=== PATIENT | female | born 1945 | race Caucasian/White ===

== ENCOUNTER → 2016-10-28 | Outpatient (CLI) | payer MEDICARE | END | disposition home or self-care (01) | LOC: CFH 14:00 | PROVIDERS: ATTEND Internal Medicine | DX: Z12.31 Encounter for screening mammogram for malignant neoplasm of breast (principal); M89.9 Disorder of bone, unspecified | CPT/HCPCS: 77080; G0202 ==

== ENCOUNTER → 2016-11-11 | Outpatient (CLI) | payer MEDICARE | END | disposition home or self-care (01) | LOC: CFH 12:30 | PROVIDERS: ATTEND Internal Medicine | DX: R92.0 Mammographic microcalcification found on diagnostic imaging of breast (principal) | CPT/HCPCS: G0206 ==

== ENCOUNTER 2016-12-05 11:57 | Day surgery (SDC) | payer MEDICARE ==
[2016-12-02 15:53] LABS: BLOOD UREA NITROGEN 19 mg/dL (7-18)
[2016-12-02 15:56] LABS: ASPARTATE AMINO TRANSFERASE 25 U/L (15-37)
[~2016-12-05] VITALS: Ht 162.6 cm; Wt 122.7 kg
[~2016-12-05 11:57] MED LIST: ALLO100T30 PO; AMLO1CAP10 PO; ASPI-496 PO; ATEN50TA41 PO; CHOL10003 PO; ESOM40CA PO; FLUT1DIS IH; GABA600T2 PO; LATA2.5D3 EACHEYE; LEVO50TA5 PO; METF10002 PO; MULT-717 PO; OMEG-133 PO; OXYC10TA32 PO; OXYC20TA42 PO; OXYC5CAP4 PO; PRAV80TA2 PO; ROPI2TAB4 PO; oxygen NAS
[2016-12-05] MEDS ORDERED: LIDOCAINE 1%, 2ML ONE (14:07)
[2016-12-05 14:18] VITALS: BP 181/84
[2016-12-05] MEDS ORDERED: LACTATED RINGERS 1,000 ML IV SCH (14:21)
[2016-12-05] MEDS ORDERED: FENTANYL PF 250 MCG/5ML ONE ×2 (14:31→15:16)
[2016-12-05] MEDS ORDERED: BUPIVACAINE/PF-EPI 0.5% 1:200K ONE (14:50)
[2016-12-05] MEDS ORDERED: SODIUM BICARBONATE 4.2%, 5ML ONE (15:23)
[2016-12-05] MEDS ORDERED: LIDOCAINE 1%, 20ML ONE (15:23)
[2016-12-05] MEDS ORDERED: hydrALAzine 20 MG/ML, 1ML IV PRN (15:30)
[2016-12-05] MEDS ORDERED: ACETAMINOPHEN 325 MG TABLET PO PRN (15:30)
[2016-12-05] MEDS ORDERED: ALBUTEROL SULFATE 2.5 MG/3 ML NPPB PRN (15:30)
[2016-12-05] MEDS ORDERED: HYDROmorphone 1 MG/ML, 1ML IV PRN (15:30)
[2016-12-05] MEDS ORDERED: OXYcodone 5 MG/5 ML ORAL.SOL UDC PO PRN (15:30)
[2016-12-05] MEDS ORDERED: METOPROLOL 1 MG/ML, 5ML IV PRN (15:30)
[2016-12-05] MEDS ORDERED: KETOROLAC 30 MG/1 ML IV PRN (15:30)
[2016-12-05] MEDS ORDERED: FENTANYL PF 100 MCG/2ML IV PRN (15:30)
[2016-12-05] MEDS ORDERED: PROMETHAZINE 25 MG/ML, 1ML IV PRN (15:30)
[2016-12-05] MEDS ORDERED: OXYcodone 5 MG/5 ML ORAL.SOL UDC ONE (15:59)
[2016-12-05] MEDS ORDERED: OxyconTIN ER 10 MG TAB.ER PO ONE (16:00)
[2016-12-05] MEDS ORDERED: CEFAZOLIN 1,000 MG ONE (16:38)
[2016-12-05] MEDS ORDERED: PROPOFOL 10 MG/ML, 20ML ONE (16:38)
[2016-12-05] MEDS ORDERED: PROPOFOL 10 MG/ML, 50ML ONE (16:38)
== END 2016-12-05 17:08 ==
LOC: CFH 11:57 → EDSTATUS 14:00 → CFH 17:08
PROVIDERS: ATTEND Surgery
DX: D24.1 Benign neoplasm of right breast (principal); I10 Essential (primary) hypertension; E11.9 Type 2 diabetes mellitus without complications; J45.909 Unspecified asthma, uncomplicated; E78.00 Pure hypercholesterolemia, unspecified; Z90.49 Acquired absence of other specified parts of digestive tract; Z90.710 Acquired absence of both cervix and uterus; Z98.890 Other specified postprocedural states; Z79.82 Long term (current) use of aspirin; Z72.89 Other problems related to lifestyle; K21.9 Gastro-esophageal reflux disease without esophagitis
CPT/HCPCS: 19125; 19281; 36415; 71020; 76098; 80053; 82962; 85025; 85610; 88307; 93005; J0690; J2704; J3010; J3490

== ENCOUNTER 2020-02-11 09:54 | Day surgery (SDC) | payer MEDICARE ==
[~2020-02-11] VITALS: Ht 162.6 cm; Wt 120.0 kg
[~2020-02-11 09:54] MED LIST changes: -AMLO1CAP10 PO; +AMLO1CAP11 PO; -GABA600T2 PO; +GABA600T7 PO; -OXYC10TA32 PO; +OXYC10TA47 PO; +OXYC5CAP2 PO; -OXYC5CAP4 PO; -ROPI2TAB4 PO; +ROPI2TAB8 PO
[2020-02-11] MEDS ORDERED: ASPIRIN 325 MG TABLET EC PO ONE (10:30)
[2020-02-11] MEDS ORDERED: SEMA0.25 SQ (10:39)
[2020-02-11] MEDS ORDERED: PRAV40TA2 PO (10:39)
[2020-02-11 10:40] VITALS: BP 182/99
[2020-02-11] MEDS ORDERED: SODIUM CHLORIDE 0.9% 1,000 ML IV SCH (11:00)
[2020-02-11] MEDS ORDERED: PLEASE ENTER HEIGHT AND WEIGHT MC SCH (11:00)
[2020-02-11 11:06] LABS: BASOPHILS # (AUTO) 0.05 x10^3/uL (0-0.1); BASOPHILS % (AUTO) 1 % (0-1); EOSINOPHILS # (AUTO) 0.17 x10^3/uL (0-0.4); EOSINOPHILS % (AUTO) 2 % (1-7); LYMPHOCYTES # (AUTO) 3.42 x10^3/uL (1-3.4); LYMPHOCYTES % (AUTO) 38 % (22-44); MD NO; MEAN CORPUSCULAR HEMOGLOBIN 27.7 pg (27.0-34.8); MEAN CORPUSCULAR HGB CONC 31.9 g/dL (32.4-35.8); MEAN PLATELET VOLUME 7.9 fL (7.4-10.4); MONOCYTES # (AUTO) 0.46 x10^3/uL (0.2-0.8); MONOCYTES % (AUTO) 5 % (2-9); NEUTROPHILS # (AUTO) 4.88 x10^3/uL (1.8-6.8); NEUTROPHILS % (AUTO) 54 % (42-75); PLATELET COUNT 253 x10^3/uL (130-400); RED BLOOD COUNT 4.25 x10^6/uL (3.82-5.3); RED CELL DISTRIBUTION WIDTH 15.1 % (9.6-15.2)
[2020-02-11 11:13] LABS: ANION GAP 8 mmol/L (5-15); CALCIUM 10.2 mg/dL (8.5-10.1); CHLORIDE 105 mmol/L (98-107); CREATININE 1.08 mg/dL (0.55-1.02)
[2020-02-11] MEDS ORDERED: ASPIRIN 325 MG TABLET EC ONE (11:14)
[2020-02-11 11:20] LABS: INTERNATIONAL NORMALIZED RATIO 0.95 (0.93-1.1); PROTHROMBIN TIME 9.8 Seconds (9.6-11.5)
[2020-02-11] MEDS ORDERED: HEPARIN 1,000 UNITS/ML, 10ML ONE (11:56)
[2020-02-11] MEDS ORDERED: BIVALIRUDIN 250 MG ONE (11:56)
[2020-02-11] MEDS ORDERED: MIDAZOLAM 1 MG/ML, 5ML ONE (11:56)
[2020-02-11] MEDS ORDERED: LIDOCAINE-MPF 1%, 5ML ONE (11:56)
[2020-02-11] MEDS ORDERED: FENTANYL PF 100 MCG/2ML ONE (11:56)
[2020-02-11] MEDS ORDERED: TICAGRELOR 90 MG TABLET ONE (11:56)
[2020-02-11] MEDS ORDERED: VERAPAMIL 2.5 MG/ML, 2ML ONE (11:56)
== END 2020-02-11 14:54 | disposition home or self-care (01) ==
LOC: CACL 09:54
PROVIDERS: ATTEND Internal Medicine Cardiovascular Disease
DX: R93.1 Abnormal findings on diagnostic imaging of heart and coronary circulation (principal); I10 Essential (primary) hypertension; E78.2 Mixed hyperlipidemia; E03.9 Hypothyroidism, unspecified; F32.9 Major depressive disorder, single episode, unspecified; E78.00 Pure hypercholesterolemia, unspecified; E11.40 Type 2 diabetes mellitus with diabetic neuropathy, unspecified; G47.33 Obstructive sleep apnea (adult) (pediatric); K21.9 Gastro-esophageal reflux disease without esophagitis; J45.909 Unspecified asthma, uncomplicated; E66.01 Morbid (severe) obesity due to excess calories; Z79.899 Other long term (current) drug therapy; Z79.82 Long term (current) use of aspirin; Z79.84 Long term (current) use of oral hypoglycemic drugs; Z68.42 Body mass index [BMI] 45.0-49.9, adult; Z91.048 Other nonmedicinal substance allergy status; Z98.890 Other specified postprocedural states; Z82.49 Family history of ischemic heart disease and other diseases of the circulatory system; Z83.3 Family history of diabetes mellitus
CPT/HCPCS: 36415; 71046; 80048; 85025; 85610; 93458; 99156; 99157; C1769; C1894; J1644; J2250; J3010; Q9967; J0583

== ENCOUNTER → 2020-03-20 | Outpatient (CLI) | payer MEDICARE ==
[~2020-03-20] MED LIST changes: +AMLO-150 PO; +BENA20TA54 PO; +LEVO25TA4 PO; +PRAV40TA2 PO; +SEMA0.25 SQ; +hydrochlorothiazide
[2020-03-20 14:25] LABS: ALANINE AMINOTRANSFERASE 21 U/L (12-78); ALBUMIN 3.8 g/dL (3.4-5.0); ANION GAP 11 mmol/L (5-15); CHLORIDE 102 mmol/L (98-107); CREATININE 1.38 mg/dL (0.55-1.02)
[2020-03-20 14:26] LABS: INTERNATIONAL NORMALIZED RATIO 0.99 (0.93-1.1); PROTHROMBIN TIME 10.5 Seconds (9.6-11.5)
[2020-03-20 14:28] LABS: ALKALINE PHOSPHATASE 100 U/L (45-117); BILIRUBIN,TOTAL 0.3 mg/dL (0.2-1.0); TOTAL PROTEIN 7.3 g/dL (6.4-8.2)
[2020-03-20 14:30] LABS: BASOPHILS % (AUTO) 1 % (0-1); EOSINOPHILS % (AUTO) 1 % (1-7); LYMPHOCYTES % (AUTO) 41 % (22-44); MEAN CORPUSCULAR HEMOGLOBIN 27.2 pg (27.0-34.8); MEAN CORPUSCULAR HGB CONC 31.4 g/dL (32.4-35.8); MEAN PLATELET VOLUME 8.3 fL (7.4-10.4); MONOCYTES % (AUTO) 5 % (2-9); NEUTROPHILS % (AUTO) 52 % (42-75); PLATELET COUNT 336 x10^3/uL (130-400); RED BLOOD COUNT 4.39 x10^6/uL (3.82-5.3); RED CELL DISTRIBUTION WIDTH 14.6 % (9.6-15.2)
[2020-03-20 14:49] LABS: MICROSCOPIC INDICATED
[2020-03-20 15:01] LABS: MD SCAN
== END | disposition home or self-care (01) ==
LOC: STAR 12:10
PROVIDERS: ATTEND Neurological Surgery
DX: Z01.818 Encounter for other preprocedural examination (principal); T84.84XA Pain due to internal orthopedic prosthetic devices, implants and grafts, initial encounter; R94.31 Abnormal electrocardiogram [ECG] [EKG]
CPT/HCPCS: 36415; 71046; 80053; 81001; 85025; 85610; 85730; 87077; 87086; 93005

== ENCOUNTER → 2020-03-23 | Outpatient (CLI) | payer MEDICARE ==
[~2020-03-23] MED LIST changes: -LATA2.5D3 EACHEYE; +LATA2.5D4 EACHEYE
== END | disposition home or self-care (01) ==
LOC: STAR 14:16
PROVIDERS: ATTEND Anesthesiology
DX: Z01.812 Encounter for preprocedural laboratory examination (principal); Z20.828 Contact with and (suspected) exposure to other viral communicable diseases
CPT/HCPCS: 36415; 87635